=== PATIENT | female | born 1995 | race Caucasian/White ===

== ENCOUNTER 2018-05-21 13:02 | Emergency (ER) | payer BC ==
[~2018-05-21] VITALS: Ht 160 cm; Wt 59.1 kg
[2018-05-21] MEDS ORDERED: KEFLEX250 M1 PO (17:01)
[2018-05-21 17:14] VITALS: BP 104/62
== END 2018-05-21 17:12 | disposition home or self-care (01) ==
LOC: ED 13:02
DX: S31.821A Laceration without foreign body of left buttock, initial encounter (principal); S70.212A Abrasion, left hip, initial encounter; S60.417A Abrasion of left little finger, initial encounter; W17.89XA Other fall from one level to another, initial encounter; Z23 Encounter for immunization; Y92.39 Other specified sports and athletic area as the place of occurrence of the external cause
CPT/HCPCS: 90715

== ENCOUNTER 2018-05-28 09:01 | Emergency (ER) | payer BC ==
[~2018-05-28 09:01] MED LIST: KEFLEX250 M1 PO
[2018-05-28 09:22] VITALS: BP 95/63
== END 2018-05-28 09:23 | disposition home or self-care (01) ==
LOC: ED 09:01
DX: S71.112D Laceration without foreign body, left thigh, subsequent encounter (principal); S31.821D Laceration without foreign body of left buttock, subsequent encounter

== ENCOUNTER → 2018-07-19 | Outpatient (CLI) | payer BC | LOC: LAB 11:56 | DX: K21.9 Gastro-esophageal reflux disease without esophagitis (principal); R10.9 Unspecified abdominal pain; K59.00 Constipation, unspecified; K52.9 Noninfective gastroenteritis and colitis, unspecified; R11.0 Nausea ==

== ENCOUNTER → 2018-07-21 | Outpatient (CLI) | payer BC | LOC: LAB 09:50 | DX: K21.9 Gastro-esophageal reflux disease without esophagitis (principal); R10.9 Unspecified abdominal pain; K59.00 Constipation, unspecified; R19.7 Diarrhea, unspecified; R11.0 Nausea ==

== ENCOUNTER → 2018-07-25 | Outpatient (CLI) | payer BC | LOC: LAB 13:09 | DX: Z32.01 Encounter for pregnancy test, result positive (principal); N91.2 Amenorrhea, unspecified ==